=== PATIENT | male | born 1985 | race Caucasian/White ===

== ENCOUNTER 2019-07-20 09:57 | Emergency (ER) | payer BC ==
[2019-07-20 10:08] VITALS: BP 121/66; RESP 18
[2019-07-20] MEDS ORDERED: IBUPROFEN 600 MG TAB PO STA (10:21)
--- NOTE | 2019-07-20 10:49 | XR ---
EXAMINATION TYPE: XR chest 2V DATE OF EXAM: 07/20/2019 COMPARISON: None INDICATION: Cough, fever x3 days TECHNIQUE: Frontal and lateral views of the chest are obtained. FINDINGS: The heart size is normal. The pulmonary vasculature is normal. The lungs are clear. IMPRESSION: 1. No acute pulmonary process.
--- NOTE | 2019-07-20 10:49 | ED ---
Fever HPI - General Chief Complaint: Fever Stated Complaint: fever Time Seen by Provider: 07/20/19 10:16 Source: patient Mode of arrival: ambulatory Limitations: no limitations - History of Present Illness Initial Comments: Patient is a 33-year-old male presenting to the emergency Department with complaints of a fever, cough, and congestion for the past 3 days. Patient states he also feels short of breath at times. Patient has been taking Tylenol, last dose was last night. He denies history of asthma, COPD. Patient has history of hypertension, GERD. No other pertinent past medical history. He has no other complaints at this time. Upon arrival to the ER, patient is febrile at 102.5, pulse is 116, BP 121/66, 98% on room air. - Related Data Previous Rx's Medication Instructions Recorded Albuterol Inhaler [Ventolin Hfa 1 - 2 puff INHALATION RT-Q6H PRN 07/20/19 Inhaler] #1 inhaler Azithromycin [Zithromax Z-pack] 0 mg PO DIRECTED #1 pack 07/20/19 Allergies Allergy/AdvReac Type Severity Reaction Status Date / Time No Known Allergies Allergy Verified 07/20/19 10:08 Review of Systems ROS Statement: Those systems with pertinent positive or pertinent negative responses have been documented in the HPI. ROS Other: All systems not noted in ROS Statement are negative. Past Medical History Past Medical History: GERD/Reflux, Hypertension History of Any Multi-Drug Resistant Organisms: None Reported Past Surgical History: Orthopedic Surgery Past Psychological History: No Psychological Hx Reported Smoking Status: Current every day smoker Past Alcohol Use History: None Reported Past Drug Use History: None Reported General Exam - General Exam Comments Initial Comments: GENERAL: Well-appearing, well-nourished and in no acute distress. HEAD: Atraumatic, normocephalic. EYES: Pupils equal round and reactive to light, extraocular movements intact, sclera anicteric, conjunctiva are normal. ENT: TMs normal, nares patent, oropharynx clear without exudates. Moist mucous membranes. NECK: Normal range of motion, supple without lymphadenopathy or JVD. LUNGS: Breath sounds clear to auscultation bilaterally and equal. No wheezes rales or rhonchi. HEART: Regular rate and rhythm without murmurs, rubs or gallops. ABDOMEN: Soft, nontender, normoactive bowel sounds. No guarding, no rebound. No masses appreciated. : Deferred EXTREMITIES: Normal range of motion, no pitting or edema. No clubbing or cyanosis. NEUROLOGICAL: Normal speech, normal gait. PSYCH: Normal mood, normal affect. SKIN: Warm, Dry, normal turgor, no rashes or lesions noted. Limitations: no limitations Course Vital Signs 07/20/19 07/20/19 07/20/19 10:05 10:16 11:25 Temperature 102.5 F H 101.6 F H Pulse Rate 116 H Respiratory 18 18 Rate Blood Pressure 121/66 O2 Sat by Pulse 98 Oximetry 07/20/19 11:33 Temperature 101.6 F H Pulse Rate 110 H Respiratory 18 Rate Blood Pressure 121/66 O2 Sat by Pulse 98 Oximetry Medical Decision Making - Medical Decision Making Patient is a 33-year-old male presenting with fever, cough, congestion for 3 days. Patient was febrile and slightly tachycardia upon arrival. Chest x-ray shows no acute abnormalities. Patient is influenza negative. Patient was given Motrin in the ER. I discussed the findings with the patient and suggested we treat for walking pneumonia. Patient is agreeable with this plan of care. Patient will be given azithromycin as well as inhaler for symptoms. Patient can follow up with his PCP if symptoms persist. He is in agreement with this plan of care. Return parameters were discussed with the patient and he verbalized understanding. Case discussed with Dr. Szymanski. - Lab Data Lab Results 07/20/19 Range/Units 10:29 Influenza Type A RNA Not Detected (Not Detectd) Influenza Type B (PCR) Not Detected (Not Detectd) Disposition Clinical Impression: Cough, Walking pneumonia Disposition: HOME SELF-CARE Condition: Stable Instructions (If sedation given, give patient instructions): Pneumonia (ED) Additional Instructions: Please return to the Emergency Department if symptoms worsen or any other concerns. Take antibiotic as prescribed. Continue with Motrin for fever and symptom control. Use inhaler as needed for cough and shortness of breath. Prescriptions: Albuterol Inhaler [Ventolin Hfa Inhaler] 1 - 2 puff INHALATION RT-Q6H PRN #1 inhaler PRN Reason: Cough Azithromycin [Zithromax Z-pack] 0 mg PO DIRECTED #1 pack Is patient prescribed a controlled substance at d/c from ED?: No Referrals: Siri Monroy DO [Primary Care Provider] - 1-2 days
[2019-07-20 11:25] VITALS: TEMP 101.6
[2019-07-20 11:35] VITALS: PULSE 110
== END 2019-07-20 11:33 | disposition home or self-care (01) ==
LOC: EC 09:57
DX: J18.9 Pneumonia, unspecified organism (principal); F17.200 Nicotine dependence, unspecified, uncomplicated
CPT/HCPCS: 71046; 87502; 99283